=== PATIENT | male | born 2000 ===

== ENCOUNTER 2024-12-06 06:26 | Day surgery (SDC) | payer BC, SELFPAY | END 2024-12-06 16:33 | disposition home or self-care (01) | LOC: GI 06:26 | PROVIDERS: ATTENDING PHYSICIAN Specialist | DX: K51.00 Ulcerative (chronic) pancolitis without complications (principal); K62.89 Other specified diseases of anus and rectum; K63.89 Other specified diseases of intestine; K63.5 Polyp of colon; D12.3 Benign neoplasm of transverse colon; K52.9 Noninfective gastroenteritis and colitis, unspecified | CPT/HCPCS: 45380; 88305 ==